=== PATIENT | male | born 1965 | race Caucasian/White ===

== ENCOUNTER 2018-06-16 | Emergency (ER) | payer OTHER | END 2018-06-16 12:08 ==

== ENCOUNTER 2018-06-16 12:30 | Inpatient (IN) | payer OTHER ==
[2018-06-16] MEDS ORDERED: MAGNESIUM HYDROXIDE 30 ML UDCUP PO PRN (14:23)
[2018-06-16] MEDS ORDERED: MAG HYDROX/AL HYDROX/SIMETH 30 ML UDCUP PO PRN (14:23)
[2018-06-16] MEDS: OLANZapine 5 MG TAB PO PRN (18:03)
[2018-06-16] MEDS: QUEtiapine FUMARATE 200 MG TAB PO SCH (20:37)
[2018-06-16] MEDS: DIAZEPAM 2 MG TAB PO SCH (20:37)
--- NOTE | 2018-06-16 20:59 | BAPA ---
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 He lives with his and 2 teenage children in [place]. He has p rior inpatient hospitalizations for detox and rehab. He is presently followed by [facility], and [facility] Frances Dawson MD, and has a [employer], Annabelle Isidro. He has been away from his work since November of 2017, after his discovered his substance use and prompted him to self report t o [facility], which he has done voluntarily. His outpatient Psychiatrist is Juhi Savage MD; he has bee n working with her since June 2007. He was referred to [facility] to likely und ergo electroconvulsive therapy on the referral of Dr. Savage, who has provided verbal corroboration of her support for this treatment, although she is [place] and has not yet provided a [facility] 2nd opinion. Sources of information include, however, Dr. Savage's office notes, which do men tion ECT, and the patient who is a fairly good historian as well as input from his by phone. This patient has a long-standing history of mood symptoms with its onset at approximately 21 years of age, that according to Dr. Savage, had been managed with minimal medication over the years. [facility], he had been using opioids for years, which had been unknown to his medical providers or family. He did manage his mood symptoms behaviorally with attention to sleep, exercise, and stress reduction. However, presently, he is in the throes of a very severe bipolar depression which is not responsive t o thoughtful and comprehensive psychopharmacology and psychotherapy. MEDICATIONS: His present meds include lithium carbonate 600 mg in the morning and 900 mg at h.s.; Se roquel 400 mg p.o. q.h.s.; lamotrigine 200 mg p.o. q.h.s.; Cialis 5 mg 1 each day as needed; he also has been using olanzapine 5 to 10 mg every 6 hours as needed for more severe anxiety. He is on diaze josh presently at 12 mg, which had been used in an attempt to ease his taper off of benzodiazepine, bu t this has proved extremely difficult for the patient. He experiences withdrawal symptomatology inte nsely and with great dysphoria. Present mood symptoms include hypersomnia, anergia, amotivation, profound cognitive deficits in tammy ntration, focus and short-term memory, as well as distractibility, increased appetite, nihilistic and self-deprecating rumination with a.m. worsening, hopelessness and ultimately suicidal ideation with no present intent or plan, but a sense that this could be an option for him given how negatively impa cted so many spheres of his life have become. He has affectively lost his professional stature and s tanding, is having profound family conflict, most notably in the form of refusal of his sons to speak to him and feeling essentially forced to undergo treatment in order to recapture his work life. He denies any present psychotic symptomatology. He has some symptoms that arguably could be consistent with mixed symptoms such as agitation and feeling severe anxiety, dread, and easily overwhelmed. He states metaphorically that he, "feels like a soldier on a landing craft approaching the beach on ." The patient has attempted light therapy to no avail. He has had activating events from antidepr essants such as Wellbutrin. He developed what sounds like a psychotic mixed-manic state when he was abruptly discontinued off of his phenobarbital that was being used to detox him from benzodiazepine. He had hyperreligiosity, paranoia, and hallucinations during that time. He did not sleep for 4 days and his thoughts were racing. The patient has gone to drug rehab at [facility] in [place], and it was there that he had the rapid t aper off of hydrocodone and left against medical advice after 5 days. He also had a rehab experience in [place], [place], at [facility], where he was for 7 weeks. He then went to [facility] for hav ing suicidal ideation, and it was there that he was placed on 270 mg of phenobarbital for 11 days, th en returned back to [place]. He was hospitalized in December 2017, at [facility] for 5 days on an M1 hold. He has been at [facility] in [place], [place]. He developed some paranoid delusion while ere. He returned after that to [facility]. He reportedly wrote a suicide letter in mid February 2018, a nd was taken to a hospital in [place], [place], and then returned back to [facility] ere he had lived in his own apartment for 6 weeks prior to returning to his home with his and liliana luana for the past 3 weeks. Hence, he has been at a number of treatment efforts, some of which seem to be accompanied by worsening mood states and suicidality. PAST MEDICAL HISTORY: The patient has a history of well-controlled asthma, for which he does not use his inhalers every day. He had an acute injury of anterior cruciate ligament in October 2015. He h as tolerated anesthesia well historically. He has no risk factors or history of angina or CAD. No C OPD. He does have a history of bradycardia and his present pulse rate of about 70 is rapid for him a nd he attributes it to his anxiety and the withdrawal from the benzodiazepine. He had been in second -degree Wenckebach heart block at 1 point. His EKG presently reveals that he is in first-degree hear t block. He has no neurologic symptoms, chronic daily headache. ALLERGIES: He is allergic to penicillin and trazodone. SUBSTANCE USE HISTORY: The patient 1st tried alcohol at 15 years of age. He used to drink a 6-pack of beer nightly and in 2006, increased his use and began hiding his consumption. It was in 2009, alejandra t he developed a dependence on hydrocodone which, was not prescribed as well as benzodiazepine. He w as clean 1st 5 months and then relapsed. Urine drug screen was positive for benzodiazepines as he is prescribed them, but negative for opiates. BAL was 0 in the emergency room. FAMILY HISTORY: Two grandfathers committed suicide, 1 by drowning and other by overdose on pills. H is mother was undiagnosed but probably bipolar with possible borderline personality disorder. He has a 15-year-old son with history of depression, who had been treated since 11 years of age. SOCIAL HISTORY: The patient had a 1st marriage at age 23 that lasted 3 years. He his presen t after that, with whom he has 2 sons, ages 15 and 17. He had lived in [place], where he att ended high school then an alternative college with the emphasis on arts. 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 He went to the [employer] and obtained pancho rao MD in 1994. He lived in [place], and then [place], [place]. They then moved to [place] in 2001, moving between [place] and then [place]. 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 No legal history. He is an exercise buff, but this has fallen off dramatically with his present mood and substance-related issues. MENTAL STATUS EXAM: The patient is a 52-year-old white male who appears his stated age. He is pleas ant, cooperative, engaged and clearly expressing a desperate desire to be helped. He comes across, h owever, as tense with some fine hand tremor consistent with his anxiety or perhaps withdrawal. He finley s excellent intellectual insight, alert and oriented x3, above average in intelligence. Thought proc esses are goal directed. Thought content is positive for nihilistic rumination, hopelessness and manoj cidal ideation without present intent or plan. He denies hallucinations or delusional material at pr esent (he does have history, though). There is no overt psychomotor slowing or agitation except for the tension and tremor. He is adequately groomed with decent hygiene and appropriate dress. He is w ell related. Affect is constricted to the dysphoric range. Subjectively, he feels very impaired in terms of attention, focus, concentration, distractibility, executive functioning, and short-term blanka ry. Cognitively, he seems objectively less impaired than he feels subjectively. DIAGNOSIS: Kelliher I: Bipolar 1 disorder, depressed; rule out benzodiazepine withdrawal; history of al cohol, benzodiazepine and opiate use disorder; rule out substance induced mood disorder. Kelliher II: Deferred. Kelliher III: Asthma. Kelliher IV: Severe. Kelliher V: 35 IMPRESSION AND RECOMMENDATION: Rosita is suffering with significant dual diagnosis issues includ ing bipolar depression, substance dependence history, and perhaps some physiologic effects of taperin g benzodiazepine. I believe that his depression is making it that much more difficult to resiliently handle the adverse feelings accompanied with reducing his benzodiazepine, rendering that process ashwini ost impossible for him. It is my conviction that treating his mood disorder more aggressively would not only address those potentially life-threatening symptoms but also allow him to deal with greater equanimity issues such as benzodiazepine taper and the psychosocial stressors that are on his plate i ncluding threat to his career and family. It is a condition of [facility] that he be totally off benzodiaz epines. The patient has been provided with a great deal of psychoeducation regarding ECT, which will be further discussed tomorrow. He understands that it is the most efficacious and expedient way to address his mood disorder and by so doing, allow him a greater chance of coming successfully off the benzodiazepine. I might recommend using an antiepileptic mood stabilizer upon completion of the acut e ECT to allow him to more seamlessly come completely off the benzodiazepine. Depakote might be wort h using and have the added benefit of being an excellent mood stabilizer. Houck and Lamictal level s are pending. The patient might have the benefit of his in-laws supporting outpatient acute ECT. Andie dc live in [place] and may be able to provide that supervision. Otherwise, transferring to an [facility] living program in [facility] while he completes his acute ECT could also work. /[id number]/MODL
[2018-06-16] MEDS ORDERED: LITHIUM CARBONATE 300 MG CAP PO SCH (21:00)
[2018-06-16] MEDS ORDERED: lamoTRIgine 100 MG TAB PO SCH (21:00)
[2018-06-17] MEDS ORDERED: LITHIUM CARBONATE 300 MG CAP PO SCH (09:00)
--- NOTE | 2018-06-17 11:07 | ASMTBHMTP ---
Master Treatment Plan Master Treatment Plan Answers: Depressed Mood with for: Suicidal Ideation Date: 06/16/2018 Diagnosis on Admission: MDD Expected length of stay: 5-7 days Reason for admission: Notes: Client is is a 52 yoa male, with extensive history of participation in and out of "Drug Rehab facilities." Client was treated for a recent Hydrocodone addiction and suicidal statements as well as a drafted "suicide note (February 2018)." Clt has recently returned back to [place], [place] and was living in his own apartment for about 6 weeks with his and children for the past 3 weeks. Client current out-patient treatment team consist of Magalys Isidro (Mobile Architect at [facility], Martial therapist over the past month) & Dr. Juhi Savage MD out-patient Psychiatrist. Patient's stated presenting problems: Notes: "I'm derpressed...going to try ECT [place] with Dr. Watts." Patient's goals for treatment: Notes: "to feel better...." Patient's strengths: Notes: "I'm smart." Identify supports outside of hospital: Notes: Yes Discharge criteria: Notes: Suicidal Ideation will resolve and patient will have a plan to safely manage recurrent suicidal ideation. Initial disposition plan/considerations: Notes: NEED to find new plan because staying with my 's parents are no longer an option." Master Treatment Plan Required Signatures Psychiatrist signature: Answers: Psychiatrist: RN on-shift signature: Answers: RN: Patient signature: Answers: Patient: Date Signed: 06/17/2018 08:48 AM Electronically Signed By:Daljit Jones
[2018-06-17] MEDS: DIAZEPAM 2 MG TAB PO SCH (15:04)
--- NOTE | 2018-06-17 15:35 | SOAPPROG ---
SOAP Progress Note Assessment/Plan: Assessment: Bipolar I depression, ETOH/Benzo/Opiate use disorder, recent Benzo w/d Plan: Reviewed ECT with patient at length. He provided his I/C to start RUL ECT tomorrow. Found out that in-laws are not comfortable providing 24/7 supervision. I recommended they come to see a treatment and speak with MD and Elizabeth Johnston or Kasandra Lowe about the specifics of providing that care. Will reach out to . Will allow Ambien 10 qhs to replace Diazepam for the nights prior to ECT. Dr Becker was given extensive verbal, written, and internet based references (ie , [facility] with video of procedure, and [facility] sites) in the service of providing psycho-education about ECT, and its risks, benefits and alternatives. We discussed APA based guidelines for being a candidate for this procedure, including factors such as acuity, treatment resistance/intolerance, pt preference, the risk of inaction or inadequate action (ie, morbidity or mortality from SI of mood disorder if under treated), and the role of possible diagnostic uncertainty. Alternative treatments, such as further med trial(s), TMS, or psychotherapies were discussed. Star D data was used to inform this medical decision making process, comparing relative remission rates with further med trials in a treatment resistant cohort with remission and response rates using ECT in TRD. The risks were highlighted including mortality from anesthesia, ME, arrhythmia, or CVA.Common, nuisance side effects were discussed including headache, nausea/ emesis, jaw pain, muscle aches. Cognitive side effects were discussed extensively, both verbally and with written handout. This included the potential for: anterograde and retrograde amnesia; transient delirium; hypofrontality with abulia and slowed processing speed ;a sense of derealization/depersonalization. State dependent memory issues were discussed as a form of remote memory effect that may be more a function of ones very improvement than a side effect of ECT itself. Again, all these risks and side effects were balanced against the risk using alternative or status quo treatment. We discussed RUL vs Bilateral ECT Typical course is 6-18 ECTs, 2-3 times per week. Often RUL takes longer to complete than Bilateral, and up to 50% of our patients who start with RUL switch at some point to bilateral due to inadequate or slow response. Maintenance ECT was discussed as beneficial to reduce relapse risk, when used with meds, rather than either modality alone or , of course, neither modality, with its 85% relapse risk in the months following acute ECT in those who respond initially Discussed alternative of starting inpatient vs outpatient, and the need for 24/ 7 supervision for any part of acute ECT done outpatient. This supervision should persist for at least two weeks beyond the end of the acute phase.. Pt and family is instructed to speak with Elizabeth Johnston RN (phone [phone]) re logistic of starting and has information about the supportive, therapeutic services (for pt or family) of Kasandra Lowe, for whom a number is provided. 06/17/18 15:27 Objective: Vital Signs Temp Pulse Resp BP Pulse Ox 36.6 C 90 14 95/58 L 99 06/17/18 06:00 06/17/18 06:00 06/17/18 06:00 06/17/18 06:00 06/17/18 06:00 Laboratory Results 06/16/18 09:25 Laboratory Tests 06/17/18 06/17/18 06:30 06:30 Lamotrigine Pending [place] 1.2 ICD10 Worksheet Patient Problems: Problems Problem Status Onset Bipolar 1 disorder, depressed Acute - ICD10 Problem Qualifiers (1) Bipolar 1 disorder, depressed
[2018-06-17] MEDS: OLANZapine 5 MG TAB PO PRN (18:12)
[2018-06-17] MEDS: ZOLPIDEM TARTRATE 5 MG TAB PO PRN (20:05)
[2018-06-17] MEDS: QUEtiapine FUMARATE 200 MG TAB PO SCH (20:05)
[2018-06-18] MEDS ORDERED: NS 1,000 ML IV PRN (04:00)
[2018-06-18] MEDS ORDERED: CITRIC ACID/SODIUM CITRATE 30 ML UDCUP PO PRN ×2 (04:00→12:33)
[2018-06-18] MEDS ORDERED: ONDANSETRON DISINTEGRATING 4 MG TAB PO PRN ×3 (04:00→13:08)
--- NOTE | 2018-06-18 06:30 | PDMN ---
Medical Necessity Medical necessity: Pt meets inpt criteria per MD order and [facility], Bipolar Disorders, Adult: Inpatient Care, 4 days. Est LOS>2MN for management of severe bipolar depression, hx substance abuse, rule out benzodiazepine WD, rule out substance induced mood disorder.
[2018-06-18] MEDS: OLANZapine 5 MG TAB PO PRN ×2 (10:06→21:34)
[2018-06-18] MEDS ORDERED: ONDANSETRON DISINTEGRATING 4 MG TAB ONE (12:23)
[2018-06-18] MEDS ORDERED: CITRIC ACID/SODIUM CITRATE 30 ML UDCUP ONE (12:23)
[2018-06-18] MEDS ORDERED: fentaNYL 100 MCG/2 ML INJ ONE (12:41)
[2018-06-18] MEDS ORDERED: MIDAZOLAM 2 MG/2 ML VIAL ONE (12:41)
[2018-06-18] MEDS ORDERED: LORazepam 2 MG/ML INJ ONE (12:44)
[2018-06-18] MEDS: NS 1,000 ML IV PRN (12:45)
--- NOTE | 2018-06-18 12:45 | POSTANESTH ---
Post Anesthetic Evaluation Cardiovascular Status: Normal, Stable Respiratory Status: Normal, Stable Level of Consciousness/Mental Status: Can Participate in Eval, Alert and Oriented Pain Control: Adequate, Prn Tx Ordered Nausea/Vomiting Control: Adequate, Prn Tx Ordered Complications Possibly Related to Anesthesia: None Noted
--- NOTE | 2018-06-18 12:46 | PDANEPAE ---
ECT Pre Anesthetic Evaluation Allergies/Adverse Reactions: aripiprazole [From Abilify] Allergy (Verified 06/16/18 10:22) Penicillins Allergy (Verified 06/16/18 10:22) Rash trazodone Allergy (Verified 06/16/18 10:23) Patient ID confirmed: Yes H&P reviewed: Yes Pre-anesthetic history reviewed: Yes Heart: regular rate and rhythym Lungs: clear to auscultation Mallampati Score: Class 3 ASA Status: III Home Medications: Medication Instructions Recorded Albuterol [Proventil Inhaler HFA 1 - 2 puffs IH DAILY PRN 06/16/18 (*)] Diazepam [Valium 2 MG (*)] 6 mg PO BID 06/16/18 [place] Carbonate [[place] 600 mg PO DAILY 06/16/18 Carbonate Cap 300 mg (*)] [place] Carbonate [[place] 900 mg PO HS 06/16/18 Carbonate Cap 300 mg (*)] OLANZapine [ZyPREXA 2.5 mg (*)] 2.5 - 5 mg PO Q6HRS PRN 06/16/18 QUEtiapine FUMARATE [Seroquel 200 200 - 400 mg PO HS 06/16/18 mg (*)] lamoTRIgine [LamICTAL 100 MG (*)] 200 mg PO HS 06/16/18 Patient interviewed: Yes Patient examined: Yes See previous record: Yes Anesthetic plan discussed with patient: Yes Anesthetic risks discussed with patient: Yes ECT Pre-Anesthetic History - Height & Weight Height: 177.8 cm Weight: 90.718 kg BMI: 28.70 - Medications In the Past 6 Months the Patient Has Taken: Aspirin, Tranquilizers - Tobacco/Alcohol/Drug Use Smoking Status: Never smoked Hx Drug/Substance Abuse: Yes Alcohol Use: Yes Tobacco/Alcohol/Drug Use History Comment: h/o opioid/benzo and EtOH dependency, trying to be sober - Prior Surgeries/Hospitalizations Prior Surgeries: bilat inguinal hernia, ACL repair Prior Medical Hospitalizations: pulmonary embolism - Pulmonary History ECT Hx Asthma: Yes Inhaler Use: Inhaler As Needed Hx Abnormal Chest X-Ray: No Hx Oxygen in Use at Home: No Pulmonary History Comment: no inhaler use x6 months, usually RAD activated by URI - Cardiovascular History Hx Hypertension: No Currently Uses Hypertension Medication: No Hx Arrhythmias: No Hx Palpitations: No Hx Chest Pain: No Hx Coronary Artery / Peripheral Vascular Disease: No Hx Blood Clot: Yes Cardiovascular History Comment: 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 - Neurologic History Hx Cerebrovascular Accident: No Hx CT Scan Or MRI Of The Brain: No Hx Epilepsy, Convulsions, Seizures, Or Blackouts: No Hx Frequent Or Severe Headaches: No Hx Numbness: No Hx Neurologic Disorder: No - Dental History Current Dental Issues: None - Endocrine History Hx Diabetes: No Current Daily Insulin Injections: No Hx Thyroid Problems: No - Renal/Urologic History Hx Renal Disorders: No Hx Urinary Tract Problems: No - Liver History Hx Hepatic Disorders: No - Cancer History Hx Cancer: No - Hematology History Hx Unexplained Bleeding Of Any Type: No Hx Ease Of Bruising: No Hx Anemia: No - Gastrointestinal History Hx Gastroesophogeal Reflux Disease: No Hx Ulcers: No Hx Hiatal Hernia: No Hx Difficulty Swallowing: No - Musculoskeletal Hisory Hx Chronic Pain: No Hx Arthritis: No - Opthalmic History Hx Glaucoma: No Visual Assistive Devices: Contacts Hx Opthalmic Disorders: No - Other Health History Physical Disabililty: No Recent Cough, Cold, or Fever: No Significant Weight Loss In The Last 4 Months: No Possible the Patient Might be : No
--- NOTE | 2018-06-18 13:07 | PDECTPN ---
ECT Progress Note Patient Problems: Problems Problem Status Onset Code Bipolar 1 disorder, depressed Acute F31.9 Date: 06/18/18 Treatment#: 1 ECT provider: Isiah Watts Anesthesia: Marii Payne Stimulus dose (%): 50 Pulse width: 0.3 ECT EMG (sec): 28 ECT EEG (sec): 40 QIDS-SR Total Score: 17 QIDS-SR Question #12 Score: 2 MMSE Total Score (Max = 21): 21 Next ECT date: 06/20/18 Next ECT time: 13:15 O/P psychiatrist follow up with Dr.: Hussein O/P psychiatrist follow up: phone, voice message Home medications: Medication Instructions Recorded Albuterol [Proventil Inhaler HFA 1 - 2 puffs IH DAILY PRN 06/16/18 (*)] Diazepam [Valium 2 MG (*)] 6 mg PO BID 06/16/18 [place] Carbonate [[place] 600 mg PO DAILY 06/16/18 Carbonate Cap 300 mg (*)] [place] Carbonate [[place] 900 mg PO HS 06/16/18 Carbonate Cap 300 mg (*)] OLANZapine [ZyPREXA 2.5 mg (*)] 2.5 - 5 mg PO Q6HRS PRN 06/16/18 QUEtiapine FUMARATE [Seroquel 200 200 - 400 mg PO HS 06/16/18 mg (*)] lamoTRIgine [LamICTAL 100 MG (*)] 200 mg PO HS 06/16/18 Medication review: completed Current treatment plan: acute phase Treatment plan frequency: 3 times per week ECT narrative: Pt in here for RUL ECT #1. Score 17/2 on QIDS. affect constricted, mood dyshoric , tearful, hopeless with SI on TC, A and O x3. Discussed his willingness to start taper of Valium. Will use IV ativan post tx as we held hs and am doses of valium. Pt, thankfully, not feeling any symtoms c/w benzo withdrawal as a function of that. Will try to avoid PO opiates post ECT by using Ketoralac with IV fentanyl. Spoke this AM with for further psychoed and to get her ideas about how post discharge 20/05 supervision is to happen (ie, in laws vs assisted living)
[2018-06-18] MEDS ORDERED: ACETAMINOPHEN 500 MG TAB PO PRN (13:08)
[2018-06-18] MEDS ORDERED: PROMETHAZINE HCL 25 MG TAB PO PRN (13:08)
[2018-06-18] MEDS ORDERED: IBUPROFEN 800 MG TAB PO PRN (13:08)
[2018-06-18] MEDS ORDERED: NALOXONE HCL 0.4 MG/ML INJ IVP PRN (13:08)
--- NOTE | 2018-06-18 16:14 | PDHPUP ---
History & Physical Update H&P update statement: This history and physical update is based on an assessment of the patient which was completed after admission or registration (within 24 hours), but prior to the surgery/procedure. H&P update: H&P reviewed & patient examined, no change in patient's condition since H&P completed
[2018-06-18] MEDS: lamoTRIgine 100 MG TAB PO SCH (20:57)
[2018-06-18] MEDS: QUEtiapine FUMARATE 200 MG TAB PO SCH (20:57)
[2018-06-18] MEDS: DIAZEPAM 5 MG TAB PO SCH (20:57)
[2018-06-19] MEDS: DIAZEPAM 5 MG TAB PO SCH (08:16)
--- NOTE | 2018-06-19 13:10 | SOAPPROG ---
SOAP Progress Note Assessment/Plan: Assessment: Bipolar I depression, ETOH/Benzo/Opiate use disorder, recent Benzo w/d Plan: Reviewed ECT with patient at length. He provided his I/C to start RUL ECT tomorrow. Found out that in-laws are not comfortable providing 24/7 supervision. I recommended they come to see a treatment and speak with MD and Elizabeth Johnston or Kasandra Lowe about the specifics of providing that care. Will reach out to . Will allow Ambien 10 qhs to replace Diazepam for the nights prior to ECT. Dr Becker was given extensive verbal, written, and internet based references (ie , [facility] with video of procedure, and [facility] sites) in the service of providing psycho-education about ECT, and its risks, benefits and alternatives. We discussed APA based guidelines for being a candidate for this procedure, including factors such as acuity, treatment resistance/intolerance, pt preference, the risk of inaction or inadequate action (ie, morbidity or mortality from SI of mood disorder if under treated), and the role of possible diagnostic uncertainty. Alternative treatments, such as further med trial(s), TMS, or psychotherapies were discussed. Star D data was used to inform this medical decision making process, comparing relative remission rates with further med trials in a treatment resistant cohort with remission and response rates using ECT in TRD. The risks were highlighted including mortality from anesthesia, LA, arrhythmia, or CVA.Common, nuisance side effects were discussed including headache, nausea/ emesis, jaw pain, muscle aches. Cognitive side effects were discussed extensively, both verbally and with written handout. This included the potential for: anterograde and retrograde amnesia; transient delirium; hypofrontality with abulia and slowed processing speed ;a sense of derealization/depersonalization. State dependent memory issues were discussed as a form of remote memory effect that may be more a function of ones very improvement than a side effect of ECT itself. Again, all these risks and side effects were balanced against the risk using alternative or status quo treatment. We discussed RUL vs Bilateral ECT Typical course is 6-18 ECTs, 2-3 times per week. Often RUL takes longer to complete than Bilateral, and up to 50% of our patients who start with RUL switch at some point to bilateral due to inadequate or slow response. Maintenance ECT was discussed as beneficial to reduce relapse risk, when used with meds, rather than either modality alone or , of course, neither modality, with its 85% relapse risk in the months following acute ECT in those who respond initially Discussed alternative of starting inpatient vs outpatient, and the need for 24/ 7 supervision for any part of acute ECT done outpatient. This supervision should persist for at least two weeks beyond the end of the acute phase.. Pt and family is instructed to speak with Elizabeth Johnston RN (phone [phone]) re logistic of starting and has information about the supportive, therapeutic services (for pt or family) of Kasandra Mynor, for whom a number is provided. 06/17/18 15:27 06/19/18 13:08 Pt interviewed in hospital room, him sitting up in bed. A bit unkempt and tense appearing with rumination and some SI endorsed. Tearful around discussion re sons alienation from him. He is willing to expedite his valium taper and thus I will reduce to 3 mg bid. LMT level was a bit low, but pt did miss one dose the day before it was drawn. Nonetheless, I might recommend increasing his LMT dose upon completion of acute ECT 06/19/18 13:13 Objective: Vital Signs Temp Pulse Resp BP Pulse Ox 36.7 C 85 16 105/70 96 06/18/18 16:00 06/18/18 16:00 06/18/18 16:00 06/18/18 16:00 06/18/18 16:00 Laboratory Results 06/16/18 09:25 06/18/18 06/19/18 06/20/18 05:59 05:59 05:59 Intake Total 950 Balance 950 ICD10 Worksheet Patient Problems: Problems Problem Status Onset Bipolar 1 disorder, depressed Acute - ICD10 Problem Qualifiers (1) Bipolar 1 disorder, depressed
[2018-06-19] MEDS: OLANZapine 5 MG TAB PO PRN (16:03)
--- NOTE | 2018-06-19 16:57 | ASMTCMCOM ---
CM Note CM Note Notes: CC sent referral for long-term placement (short term) via [employer] to [facility] in [place], [place]. There phone number is , to follow up with. Date Signed: 06/19/2018 04:56 PM Electronically Signed By:Daljit Jones
[2018-06-19] MEDS: ZOLPIDEM TARTRATE 5 MG TAB PO PRN (20:29)
[2018-06-19] MEDS: QUEtiapine FUMARATE 200 MG TAB PO SCH (20:30)
[2018-06-20] MEDS ORDERED: ONDANSETRON DISINTEGRATING 4 MG TAB PO PRN (04:00)
[2018-06-20] MEDS ORDERED: CITRIC ACID/SODIUM CITRATE 30 ML UDCUP PO PRN (04:00)
[2018-06-20] MEDS ORDERED: NS 1,000 ML IV PRN (04:00)
[2018-06-20] MEDS ORDERED: fentaNYL 100 MCG/2 ML INJ ONE (05:35)
[2018-06-20] MEDS ORDERED: MIDAZOLAM 2 MG/2 ML VIAL ONE (05:35)
[2018-06-20] MEDS ORDERED: SUCCINYLCHOLINE CHLORIDE 200 MG/10 ML VIAL ONE (05:36)
[2018-06-20] MEDS ORDERED: ONDANSETRON 4 MG/2 ML VIAL ONE (05:36)
[2018-06-20] MEDS ORDERED: KETOROLAC 30 MG/1 ML SDV ONE (05:36)
[2018-06-20] MEDS ORDERED: LORazepam 2 MG/ML INJ ONE (05:36)
[2018-06-20] MEDS ORDERED: ETOMIDATE 20 MG/10 ML VIAL ONE (05:36)
[2018-06-20] MEDS ORDERED: GLYCOPYRROLATE 0.2 MG/1 ML VIAL ONE (05:36)
[2018-06-20] MEDS ORDERED: ONDANSETRON DISINTEGRATING 4 MG TAB ONE (14:03)
[2018-06-20] MEDS: NS 1,000 ML IV PRN (14:04)
[2018-06-20] MEDS ORDERED: CITRIC ACID/SODIUM CITRATE 30 ML UDCUP ONE (14:04)
--- NOTE | 2018-06-20 14:25 | PDANEPAE ---
ANE Past Medical History - Cardiovascular History Hx Hypertension: No Hx Arrhythmias: No Hx Chest Pain: No Hx Coronary Artery / Peripheral Vascular Disease: No Hx Palpitations: No - Pulmonary History Hx Oxygen in Use at Home: No Hx Sleep Apnea: No - Neurologic History Hx Cerebrovascular Accident: No - Endocrine History Hx Diabetes: No - Renal History Hx Renal Disorders: No - Liver History Hx Hepatic Disorders: No - Cancer History Hx Cancer: No - Surgical History Prior Surgeries: bilat inguinal hernia, ACL repair ANE Review of Systems Review of Systems: ANE Patient History - Allergies Allergies/Adverse Reactions: aripiprazole [From Abilify] Allergy (Verified 06/16/18 10:22) Penicillins Allergy (Verified 06/16/18 10:22) Rash trazodone Allergy (Verified 06/16/18 10:23) - Home Medications Home Medications: Albuterol [Proventil Inhaler HFA (*)] 1 - 2 puffs IH DAILY PRN 06/16/18 [Last Taken Unknown] Diazepam [Valium 2 MG (*)] 6 mg PO BID 06/16/18 [Last Taken 06/16/18] [place] Carbonate [[place] Carbonate Cap 300 mg (*)] 600 mg PO DAILY 06/16/18 [ Last Taken 06/16/18] [place] Carbonate [[place] Carbonate Cap 300 mg (*)] 900 mg PO HS 06/16/18 [ Last Taken 06/15/18] OLANZapine [ZyPREXA 2.5 mg (*)] 2.5 - 5 mg PO Q6HRS PRN 06/16/18 [Last Taken Unknown] QUEtiapine FUMARATE [Seroquel 200 mg (*)] 200 - 400 mg PO HS 06/16/18 [Last Taken 06/15/18 300mg] lamoTRIgine [LamICTAL 100 MG (*)] 200 mg PO HS 06/16/18 [Last Taken 06/14/18] - NPO status NPO Status: no food or drink >8 hours - Anes Hx Anes Hx: no prior problems - Smoking Hx Smoking Status: Never smoked ANE Labs/Vital Signs - Labs Result Diagrams: 06/16/18 09:25 - Vital Signs Blood Pressure: 107/80 Heart Rate: 60 Respiratory Rate: 12 O2 Sat (%): 93 Height: 177.8 cm Weight: 90.718 kg ANE Physical Exam - Airway Neck exam: FROM Mallampati Score: Class 2 Mouth exam: normal dental/mouth exam - Pulmonary Pulmonary: no respiratory distress, no rales or rhonchi, clear to auscultation - Cardiovascular Cardiovascular: regular rate and rhythym, no murmur, rub, or gallop - ASA Status ASA Status: II ANE Anesthesia Plan Anesthesia Plan: GA with mask
--- NOTE | 2018-06-20 14:29 | PDECTPN ---
ECT Progress Note Patient Problems: Problems Problem Status Onset Code Bipolar 1 disorder, depressed Acute F31.9 Date: 06/20/18 Treatment#: 2 ECT provider: Isiah Watts Anesthesia: Narayan Pelletier Stimulus dose (%): 55 Pulse width: 0.3 ECT EMG (sec): 23 ECT EEG (sec): 43 ECT treatment type: unilateral QIDS-SR Total Score: 18 QIDS-SR Question #12 Score: 0 MMSE Total Score (Max = 21): 21 Next ECT date: 06/23/18 Next ECT time: 08:30 O/P psychiatrist follow up with Dr.: Hussein O/P psychiatrist follow up: phone, voice message Home medications: Medication Instructions Recorded Albuterol [Proventil Inhaler HFA 1 - 2 puffs IH DAILY PRN 06/16/18 (*)] Diazepam [Valium 2 MG (*)] 6 mg PO BID 06/16/18 [place] Carbonate [[place] 600 mg PO DAILY 06/16/18 Carbonate Cap 300 mg (*)] [place] Carbonate [[place] 900 mg PO HS 06/16/18 Carbonate Cap 300 mg (*)] OLANZapine [ZyPREXA 2.5 mg (*)] 2.5 - 5 mg PO Q6HRS PRN 06/16/18 QUEtiapine FUMARATE [Seroquel 200 200 - 400 mg PO HS 06/16/18 mg (*)] lamoTRIgine [LamICTAL 100 MG (*)] 200 mg PO HS 06/16/18 Medication review: completed Current treatment plan: acute phase Treatment plan frequency: 3 times per week ECT narrative: 06/18/18 Pt in here for RUL ECT #1. Score 17/2 on QIDS. affect constricted, mood dyshoric , tearful, hopeless with SI on TC, A and O x3. Discussed his willingness to start taper of Valium. Will use IV ativan post tx as we held hs and am doses of valium. Pt, thankfully, not feeling any symtoms c/w benzo withdrawal as a function of that. Will try to avoid PO opiates post ECT by using Ketoralac with IV fentanyl. Spoke this AM with for further psychoed and to get her ideas about how post discharge 20/05 supervision is to happen (ie, in laws vs assisted living) 06/20/18 Pt QIDS is 18/0 today. Tolerating Diazepam withdrawal thus far. Down to 3mg bid from 6 bid. Feeling dysphoric about his life circumstances and grieving his losses. Affect constricted, even tearful a bit, ruminative. Less overtly tense and anxious appearing however, despite reduced benzos. Cont acute RUL ECT. 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
--- NOTE | 2018-06-20 14:41 | POSTANESTH ---
Post Anesthetic Evaluation Cardiovascular Status: Similar to Pre-Op Cond, Other, See Comment (Bradycardic to 35 during postictal phase; now in 50s.) Respiratory Status: Normal, Stable, Similar to Pre-op Cond. Level of Consciousness/Mental Status: Unconscious Complications Possibly Related to Anesthesia: None Noted
[2018-06-20] MEDS: OLANZapine 5 MG TAB PO PRN (16:41)
[2018-06-20] MEDS: lamoTRIgine 100 MG TAB PO SCH (21:03)
[2018-06-20] MEDS: QUEtiapine FUMARATE 200 MG TAB PO SCH (21:03)
[2018-06-20] MEDS: DIAZEPAM 2 MG TAB PO SCH (21:04)
[2018-06-21] MEDS: DIAZEPAM 2 MG TAB PO SCH ×2 (08:24→20:39)
[2018-06-21] MEDS: OLANZapine 5 MG TAB PO PRN ×2 (14:39→20:36)
--- NOTE | 2018-06-21 17:20 | SOAPPROG ---
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 is Vol. seems with brighter affect. not attending groups on eval, pt admits he was feeling better yesterday after ECT "more upbeat", still overall better today but slightly less so regarding his mood with some return of depression. denies any SI. denies psychotic sxs or sleep disturbance. denies any BZD w/d sxs. has several books at bedside he has been trying to read seemingly for spiritual uplifting. Feels ECT may be helping soften any potential w/d sxs. talked some of his opiate addiction and generally about his issues with family as a result. expresses motivation and hopefulness about treatment mse; cooperative, casually dressed, resting in room, good ec, nml speech vol/ rate, mood "a little more depressed today" but overall still better than on admission, affect restricted but appropriate, no thought d/o, denied any SI. i/ j seem intact plan: cont current meds, ECT okay AG privs with family Objective: Vital Signs Temp Pulse Resp BP Pulse Ox 36.8 C 59 L 14 100/61 96 06/20/18 19:00 06/20/18 19:00 06/20/18 19:00 06/20/18 19:00 06/20/18 19:00 Laboratory Results 06/16/18 09:25 06/20/18 06/21/18 06/22/18 05:59 05:59 05:59 Intake Total 840 Balance 840 - Time Spent With Patient Time Spent With Patient: 30min - Pending Discharge Pending Discharge Within 24 Hours: No Pending Discharge Within 48 Hours: No ICD10 Worksheet Patient Problems: Problems Problem Status Onset Bipolar 1 disorder, depressed Acute
[2018-06-21] MEDS: lamoTRIgine 100 MG TAB PO SCH (20:38)
[2018-06-21] MEDS: QUEtiapine FUMARATE 200 MG TAB PO SCH (20:38)
[2018-06-22] MEDS: DIAZEPAM 2 MG TAB PO SCH ×2 (08:15→19:52)
[2018-06-22] MEDS: OLANZapine 5 MG TAB PO PRN (15:14)
--- NOTE | 2018-06-22 18:05 | SOAPPROG ---
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 is Vol. seems with brighter affect. not attending groups on eval, pt admits he was feeling better yesterday after ECT "more upbeat", still overall better today but slightly less so regarding his mood with some return of depression. denies any SI. denies psychotic sxs or sleep disturbance. denies any BZD w/d sxs. has several books at bedside he has been trying to read seemingly for spiritual uplifting. Feels ECT may be helping soften any potential w/d sxs. talked some of his opiate addiction and generally about his issues with family as a result. expresses motivation and hopefulness about treatment mse; cooperative, casually dressed, resting in room, good ec, nml speech vol/ rate, mood "a little more depressed today" but overall still better than on admission, affect restricted but appropriate, no thought d/o, denied any SI. i/ j seem intact plan: cont current meds, ECT okay AG privs with family 06/22/18 17:55 slept 8.5hr. half-hearted safety plan completed. not attending groups. patient went on [employer] with in-laws yesterday. recalled biking in a race around [employer] in past years. his kids and are at a bike race now. reports feeling more depressed today and as a result having some hopeless feelings about whether he will ever get better. Notes 2 problems: return to work, and family issues (teen sons not communicating with him presently) feels thoughts more perseverative on negative things. denies any suicidality. hoping ECT will help him have more positive thoughts. discussed need to practice this as well. Interested in spiritual consult, identifies yarsanism preference. Offered support, also invited pt to consider trying attending groups to help gain perspective/appreciation or he could be helpful to others, which can incr positive thoughts, also decr isolation in room. Also consider family therapy after d/c. mse: cooperative, a bit more dysphoric today. no psychosis. denied any SI. still motivated for continuing treatment. no physical c/o. denies any BZD w/d sxs. plan: cont current meds, ECT okay to continue on AG encouraged group attendance spiritual consult ?family therapy after d/c in addition to other requirements Objective: Vital Signs Temp Pulse Resp BP Pulse Ox 36.8 C 59 L 14 100/61 96 06/20/18 19:00 06/20/18 19:00 06/20/18 19:00 06/20/18 19:00 06/20/18 19:00 Laboratory Results 06/16/18 09:25 06/21/18 06/22/18 06/23/18 05:59 05:59 05:59 Intake Total 840 Balance 840 - Time Spent With Patient Time Spent With Patient: 40min - Pending Discharge Pending Discharge Within 24 Hours: No Pending Discharge Within 48 Hours: No ICD10 Worksheet Patient Problems: Problems Problem Status Onset Bipolar 1 disorder, depressed Acute
[2018-06-22] MEDS: lamoTRIgine 100 MG TAB PO SCH (19:51)
[2018-06-22] MEDS: ZOLPIDEM TARTRATE 5 MG TAB PO PRN (19:52)
[2018-06-22] MEDS: QUEtiapine FUMARATE 200 MG TAB PO SCH (19:52)
[2018-06-23] MEDS ORDERED: MIDAZOLAM 2 MG/2 ML VIAL ONE (05:10)
[2018-06-23] MEDS ORDERED: fentaNYL 100 MCG/2 ML INJ ONE (05:10)
[2018-06-23] MEDS ORDERED: GLYCOPYRROLATE 0.2 MG/1 ML VIAL ONE (05:10)
[2018-06-23] MEDS ORDERED: ETOMIDATE 20 MG/10 ML VIAL ONE (05:10)
[2018-06-23] MEDS ORDERED: KETOROLAC 30 MG/1 ML SDV ONE (05:10)
[2018-06-23] MEDS ORDERED: ONDANSETRON 4 MG/2 ML VIAL ONE (05:10)
[2018-06-23] MEDS ORDERED: SUCCINYLCHOLINE CHLORIDE 200 MG/10 ML VIAL ONE (05:11)
[2018-06-23] MEDS ORDERED: LORazepam 2 MG/ML INJ ONE (05:11)
[2018-06-23] MEDS ORDERED: ROCURONIUM 50 MG/5 ML VIAL ONE (05:11)
[2018-06-23] MEDS: DIAZEPAM 2 MG TAB PO SCH ×2 (08:01→20:43)
[2018-06-23] MEDS ORDERED: ONDANSETRON DISINTEGRATING 4 MG TAB ONE (08:39)
[2018-06-23] MEDS ORDERED: CITRIC ACID/SODIUM CITRATE 30 ML UDCUP ONE (08:40)
[2018-06-23] MEDS ORDERED: NS 1,000 ML IV PRN (08:45)
[2018-06-23] MEDS ORDERED: CITRIC ACID/SODIUM CITRATE 30 ML UDCUP PO PRN (08:45)
[2018-06-23] MEDS ORDERED: ONDANSETRON DISINTEGRATING 4 MG TAB PO PRN (08:45)
--- NOTE | 2018-06-23 09:27 | PDANEPAE ---
ECT Pre Anesthetic Evaluation Allergies/Adverse Reactions: aripiprazole [From Abilify] Allergy (Verified 06/16/18 10:22) Penicillins Allergy (Verified 06/16/18 10:22) Rash trazodone Allergy (Verified 06/16/18 10:23) Patient ID confirmed: Yes H&P reviewed: Yes Pre-anesthetic history reviewed: Yes Heart: regular rate and rhythym, no murmur, rub, or gallop Lungs: no respiratory distress, clear to auscultation Mallampati Score: Class 3 ASA Status: III Home Medications: Medication Instructions Recorded Albuterol [Proventil Inhaler HFA 1 - 2 puffs IH DAILY PRN 06/16/18 (*)] Diazepam [Valium 2 MG (*)] 6 mg PO BID 06/16/18 [place] Carbonate [[place] 600 mg PO DAILY 06/16/18 Carbonate Cap 300 mg (*)] [place] Carbonate [[place] 900 mg PO HS 06/16/18 Carbonate Cap 300 mg (*)] OLANZapine [ZyPREXA 2.5 mg (*)] 2.5 - 5 mg PO Q6HRS PRN 06/16/18 QUEtiapine FUMARATE [Seroquel 200 200 - 400 mg PO HS 06/16/18 mg (*)] lamoTRIgine [LamICTAL 100 MG (*)] 200 mg PO HS 06/16/18 Medication review: completed Patient interviewed: Yes Patient examined: Yes Anesthetic plan discussed with patient: Yes Anesthetic risks discussed with patient: Yes ECT Pre-Anesthetic History - Height & Weight Height: 177.8 cm Weight: 90.718 kg BMI: 28.70 - Medications In the Past 6 Months the Patient Has Taken: Aspirin, Tranquilizers - Tobacco/Alcohol/Drug Use Smoking Status: Never smoked Hx Drug/Substance Abuse: Yes Alcohol Use: Yes Tobacco/Alcohol/Drug Use History Comment: h/o opioid/benzo and EtOH dependency, trying to be sober - Prior Surgeries/Hospitalizations Prior Surgeries: bilat inguinal hernia, ACL repair Prior Medical Hospitalizations: pulmonary embolism - Pulmonary History ECT Hx Asthma: Yes Inhaler Use: Inhaler As Needed Hx Abnormal Chest X-Ray: No Hx Oxygen in Use at Home: No Pulmonary History Comment: no inhaler use x6 months, usually RAD activated by URI - Cardiovascular History Hx Hypertension: No Currently Uses Hypertension Medication: No Hx Arrhythmias: No Hx Palpitations: No Hx Chest Pain: No Hx Coronary Artery / Peripheral Vascular Disease: No Hx Blood Clot: Yes Cardiovascular History Comment: 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 - Neurologic History Hx Cerebrovascular Accident: No Hx CT Scan Or MRI Of The Brain: No Hx Epilepsy, Convulsions, Seizures, Or Blackouts: No Hx Frequent Or Severe Headaches: No Hx Numbness: No Hx Neurologic Disorder: No - Dental History Current Dental Issues: None - Endocrine History Hx Diabetes: No Current Daily Insulin Injections: No Hx Thyroid Problems: No - Renal/Urologic History Hx Renal Disorders: No Hx Urinary Tract Problems: No - Liver History Hx Hepatic Disorders: No - Cancer History Hx Cancer: No - Hematology History Hx Unexplained Bleeding Of Any Type: No Hx Ease Of Bruising: No Hx Anemia: No - Gastrointestinal History Hx Gastroesophogeal Reflux Disease: No Hx Ulcers: No Hx Hiatal Hernia: No Hx Difficulty Swallowing: No - Musculoskeletal Hisory Hx Chronic Pain: No Hx Arthritis: No - Opthalmic History Hx Glaucoma: No Visual Assistive Devices: Contacts Hx Opthalmic Disorders: No - Other Health History Physical Disabililty: No Recent Cough, Cold, or Fever: No Significant Weight Loss In The Last 4 Months: No Possible the Patient Might be : No
--- NOTE | 2018-06-23 09:33 | PDECTPN ---
ECT Progress Note Patient Problems: Problems Problem Status Onset Code Bipolar 1 disorder, depressed Acute F31.9 Date: 06/23/18 Treatment#: 3 ECT provider: Isiah Watts Anesthesia: Narayan Pelletier Stimulus dose (%): 60 Pulse width: 0.3 ECT EMG (sec): 40 ECT EEG (sec): 48 ECT treatment type: unilateral QIDS-SR Total Score: 9 QIDS-SR Question #12 Score: 0 MMSE Total Score (Max = 21): 21 Next ECT date: 06/25/18 Next ECT time: 10:30 O/P psychiatrist follow up with Dr.: Hussein O/P psychiatrist follow up: phone, voice message Home medications: Medication Instructions Recorded Albuterol [Proventil Inhaler HFA 1 - 2 puffs IH DAILY PRN 06/16/18 (*)] Diazepam [Valium 2 MG (*)] 6 mg PO BID 06/16/18 [place] Carbonate [[place] 600 mg PO DAILY 06/16/18 Carbonate Cap 300 mg (*)] [place] Carbonate [[place] 900 mg PO HS 06/16/18 Carbonate Cap 300 mg (*)] OLANZapine [ZyPREXA 2.5 mg (*)] 2.5 - 5 mg PO Q6HRS PRN 06/16/18 QUEtiapine FUMARATE [Seroquel 200 200 - 400 mg PO HS 06/16/18 mg (*)] lamoTRIgine [LamICTAL 100 MG (*)] 200 mg PO HS 06/16/18 Medication review: completed Current treatment plan: acute phase Treatment plan frequency: 3 times per week ECT narrative: 06/18/18 Pt in here for RUL ECT #1. Score 17/2 on QIDS. affect constricted, mood dyshoric , tearful, hopeless with SI on TC, A and O x3. Discussed his willingness to start taper of Valium. Will use IV ativan post tx as we held hs and am doses of valium. Pt, thankfully, not feeling any symtoms c/w benzo withdrawal as a function of that. Will try to avoid PO opiates post ECT by using Ketoralac with IV fentanyl. Spoke this AM with for further psychoed and to get her ideas about how post discharge 20/05 supervision is to happen (ie, in laws vs assisted living) 06/20/18 Pt QIDS is 18/0 today. Tolerating Diazepam withdrawal thus far. Down to 3mg bid from 6 bid. Feeling dysphoric about his life circumstances and grieving his losses. Affect constricted, even tearful a bit, ruminative. Less overtly tense and anxious appearing however, despite reduced benzos. Cont acute RUL ECT. 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 06/23 Read and appreciated weekend MD notes. Will call pt's . Pt liekly feeling some vague dysphoria with decrease in Valium to 3 bid. ANd needing to hold doses prior to ECT further increases that mild w/d phenomenon that he is not able to tolerate. [place] w/e was "bad" after having felt some relief with prior two ECT. Affect constricted, pleading, tense disposition, impov speech, PMR. WIll cont RUL acute ECT and cont Valium taper, but a bit slower going forward.
[2018-06-23] MEDS ORDERED: NALOXONE HCL 0.4 MG/ML INJ IVP PRN (09:34)
[2018-06-23] MEDS ORDERED: HYDROCODONE/APAP 5/325 TAB PO PRN (09:34)
--- NOTE | 2018-06-23 11:03 | POSTANESTH ---
Post Anesthetic Evaluation Cardiovascular Status: Normal, Stable Respiratory Status: Normal, Stable Level of Consciousness/Mental Status: Can Participate in Eval, Alert and Oriented Pain Control: Adequate, Prn Tx Ordered Nausea/Vomiting Control: Adequate, Prn Tx Ordered
[2018-06-23] MEDS: QUEtiapine FUMARATE 200 MG TAB PO SCH (20:44)
[2018-06-23] MEDS: lamoTRIgine 100 MG TAB PO SCH (20:44)
[2018-06-23] MEDS: OLANZapine 5 MG TAB PO PRN (20:44)
[2018-06-24] MEDS: DIAZEPAM 2 MG TAB PO SCH (08:07)
--- NOTE | 2018-06-24 14:03 | SOAPPROG ---
SOAP Progress Note Assessment/Plan: Assessment: Bipolar I depression, ETOH/Benzo/Opiate use disorder, recent Benzo w/d Plan: Reviewed ECT with patient at length. He provided his I/C to start RUL ECT tomorrow. Found out that in-laws are not comfortable providing 24/7 supervision. I recommended they come to see a treatment and speak with MD and Elizabeth Johnston or Kasandra Lowe about the specifics of providing that care. Will reach out to . Will allow Ambien 10 qhs to replace Diazepam for the nights prior to ECT. Dr Becker was given extensive verbal, written, and internet based references (ie , [facility] with video of procedure, and [facility] sites) in the service of providing psycho-education about ECT, and its risks, benefits and alternatives. We discussed APA based guidelines for being a candidate for this procedure, including factors such as acuity, treatment resistance/intolerance, pt preference, the risk of inaction or inadequate action (ie, morbidity or mortality from SI of mood disorder if under treated), and the role of possible diagnostic uncertainty. Alternative treatments, such as further med trial(s), TMS, or psychotherapies were discussed. Star D data was used to inform this medical decision making process, comparing relative remission rates with further med trials in a treatment resistant cohort with remission and response rates using ECT in TRD. The risks were highlighted including mortality from anesthesia, UT, arrhythmia, or CVA.Common, nuisance side effects were discussed including headache, nausea/ emesis, jaw pain, muscle aches. Cognitive side effects were discussed extensively, both verbally and with written handout. This included the potential for: anterograde and retrograde amnesia; transient delirium; hypofrontality with abulia and slowed processing speed ;a sense of derealization/depersonalization. State dependent memory issues were discussed as a form of remote memory effect that may be more a function of ones very improvement than a side effect of ECT itself. Again, all these risks and side effects were balanced against the risk using alternative or status quo treatment. We discussed RUL vs Bilateral ECT Typical course is 6-18 ECTs, 2-3 times per week. Often RUL takes longer to complete than Bilateral, and up to 50% of our patients who start with RUL switch at some point to bilateral due to inadequate or slow response. Maintenance ECT was discussed as beneficial to reduce relapse risk, when used with meds, rather than either modality alone or , of course, neither modality, with its 85% relapse risk in the months following acute ECT in those who respond initially Discussed alternative of starting inpatient vs outpatient, and the need for 24/ 7 supervision for any part of acute ECT done outpatient. This supervision should persist for at least two weeks beyond the end of the acute phase.. Pt and family is instructed to speak with Elizabeth Johnston RN (phone [phone]) re logistic of starting and has information about the supportive, therapeutic services (for pt or family) of Kasandra Mynor, for whom a number is provided. 06/17/18 15:27 06/19/18 13:08 Pt interviewed in hospital room, him sitting up in bed. A bit unkempt and tense appearing with rumination and some SI endorsed. Tearful around discussion re sons alienation from him. He is willing to expedite his valium taper and thus I will reduce to 3 mg bid. LMT level was a bit low, but pt did miss one dose the day before it was drawn. Nonetheless, I might recommend increasing his LMT dose upon completion of acute ECT 06/19/18 13:13 06/24/18 13:57 Spent 45 min providing psychoeducation and supportive therapy for pt. Discussed response thus far to ECT which involves transient improvement on days of Treatment and some, albeit not total, backsliding afterwards. Tolerating decrease in Valium, which itself was proving to be intolerable pre ECT when done even more modestly (ie, he could not tolerate a change from 12 mg to 10 without subjective discomfort; now is down to 3mg bid, and is having a substantial percentage of those doses held around ECT treatments). He has NO signs objectively of benzo w/d. He is wishing to push forward and decrease it to 2 mg bid. Feels some waxing and waning sense of hopefulness about surmounting his situational stressors, most notably the disturbed relationship with his sons. Spoke at length with yesterday pm. Tentative plan is to shoot for discharge by Saturday, wherein pt will stay in rented apt with 24/7 hired supervision. This person will monitor and dispense meds, allow no driving and transport pt to appts, kamala ECT. In Laws will also play a role. I encouraged there by a family meeting a week from , in my outpt office, with in Laws , by phone. Pt will be s/p ECT #7 at that point. Objective: Vital Signs Temp Pulse Resp BP Pulse Ox 36.4 C 70 14 101/60 90 L 06/24/18 06:00 06/24/18 06:00 06/24/18 06:00 06/24/18 06:00 06/24/18 06:00 Laboratory Results 06/16/18 09:25 06/23/18 06/24/18 06/25/18 05:59 05:59 05:59 Intake Total 850 Balance 850 ICD10 Worksheet Patient Problems: Problems Problem Status Onset Bipolar 1 disorder, depressed Acute - ICD10 Problem Qualifiers (1) Bipolar 1 disorder, depressed
--- NOTE | 2018-06-24 14:18 | ASMTCMCOM ---
CM Note CM Note Notes: Pt. reports doing "okay". Pt. reports sleeping "well". Pt. reports needing more to eat, and pt. requested additional food. Pt. reports ECT is "going well". Pt. reports "mood feel better but it doesn't last". Pt. stated he is on his 4th ECT out of 12. PT. reports no issues with his current medications. Pt. stated he is not attending groups because he is "not interested". Pt. denied SI, HI, AVH and paranoia. Pt. stated he will make his own follow-up appointments. Staff report pt. sleeping 9 hours and being medication complaint. Date Signed: 06/24/2018 02:07 PM Electronically Signed By:Carol Major
[2018-06-24] MEDS: OLANZapine 5 MG TAB PO PRN (15:24)
[2018-06-24] MEDS: ZOLPIDEM TARTRATE 5 MG TAB PO PRN (19:22)
[2018-06-24] MEDS: QUEtiapine FUMARATE 200 MG TAB PO SCH (19:22)
[2018-06-25] MEDS ORDERED: MIDAZOLAM 2 MG/2 ML VIAL ONE (05:27)
[2018-06-25] MEDS ORDERED: fentaNYL 100 MCG/2 ML INJ ONE (05:27)
[2018-06-25] MEDS ORDERED: LORazepam 2 MG/ML INJ ONE (05:28)
[2018-06-25] MEDS ORDERED: GLYCOPYRROLATE 0.2 MG/1 ML VIAL ONE (05:28)
[2018-06-25] MEDS ORDERED: ROCURONIUM 50 MG/5 ML VIAL ONE (05:28)
[2018-06-25] MEDS ORDERED: SUCCINYLCHOLINE CHLORIDE 200 MG/10 ML VIAL ONE (05:28)
[2018-06-25] MEDS ORDERED: KETOROLAC 30 MG/1 ML SDV ONE (05:28)
[2018-06-25] MEDS ORDERED: ETOMIDATE 20 MG/10 ML VIAL ONE (05:28)
[2018-06-25] MEDS ORDERED: ONDANSETRON 4 MG/2 ML VIAL ONE (05:28)
[2018-06-25] MEDS ORDERED: CITRIC ACID/SODIUM CITRATE 30 ML UDCUP ONE (09:58)
[2018-06-25] MEDS ORDERED: ONDANSETRON DISINTEGRATING 4 MG TAB ONE ×2 (09:58→10:22)
[2018-06-25] MEDS ORDERED: NS 1,000 ML IV PRN (10:38)
[2018-06-25] MEDS ORDERED: ONDANSETRON DISINTEGRATING 4 MG TAB PO PRN (10:38)
[2018-06-25] MEDS ORDERED: CITRIC ACID/SODIUM CITRATE 30 ML UDCUP PO PRN (10:38)
--- NOTE | 2018-06-25 11:03 | PDANEPAE ---
ECT Pre Anesthetic Evaluation Allergies/Adverse Reactions: aripiprazole [From Abilify] Allergy (Verified 06/16/18 10:22) Penicillins Allergy (Verified 06/16/18 10:22) Rash trazodone Allergy (Verified 06/16/18 10:23) Patient ID confirmed: Yes H&P reviewed: Yes Pre-anesthetic history reviewed: Yes Heart: regular rate and rhythym, no murmur, rub, or gallop Lungs: no respiratory distress, clear to auscultation Mallampati Score: Class 3 ASA Status: I Home Medications: Medication Instructions Recorded Albuterol [Proventil Inhaler HFA 1 - 2 puffs IH DAILY PRN 06/16/18 (*)] Diazepam [Valium 2 MG (*)] 6 mg PO BID 06/16/18 [place] Carbonate [[place] 600 mg PO DAILY 06/16/18 Carbonate Cap 300 mg (*)] [place] Carbonate [[place] 900 mg PO HS 06/16/18 Carbonate Cap 300 mg (*)] OLANZapine [ZyPREXA 2.5 mg (*)] 2.5 - 5 mg PO Q6HRS PRN 06/16/18 QUEtiapine FUMARATE [Seroquel 200 200 - 400 mg PO HS 06/16/18 mg (*)] lamoTRIgine [LamICTAL 100 MG (*)] 200 mg PO HS 06/16/18 Medication review: completed Patient interviewed: Yes Patient examined: Yes Anesthetic plan discussed with patient: Yes Anesthetic risks discussed with patient: Yes ECT Pre-Anesthetic History - Height & Weight Height: 177.8 cm Weight: 90.718 kg BMI: 28.70 - Medications In the Past 6 Months the Patient Has Taken: Aspirin, Tranquilizers - Tobacco/Alcohol/Drug Use Smoking Status: Never smoked Hx Drug/Substance Abuse: Yes Alcohol Use: Yes Tobacco/Alcohol/Drug Use History Comment: h/o opioid/benzo and EtOH dependency, trying to be sober - Prior Surgeries/Hospitalizations Prior Surgeries: bilat inguinal hernia, ACL repair Prior Medical Hospitalizations: pulmonary embolism - Pulmonary History ECT Hx Asthma: Yes Inhaler Use: Inhaler As Needed Hx Abnormal Chest X-Ray: No Hx Oxygen in Use at Home: No Pulmonary History Comment: no inhaler use x6 months, usually RAD activated by URI - Cardiovascular History Hx Hypertension: No Currently Uses Hypertension Medication: No Hx Arrhythmias: No Hx Palpitations: No Hx Chest Pain: No Hx Coronary Artery / Peripheral Vascular Disease: No Hx Blood Clot: Yes Cardiovascular History Comment: 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 - Neurologic History Hx Cerebrovascular Accident: No Hx CT Scan Or MRI Of The Brain: No Hx Epilepsy, Convulsions, Seizures, Or Blackouts: No Hx Frequent Or Severe Headaches: No Hx Numbness: No Hx Neurologic Disorder: No - Dental History Current Dental Issues: None - Endocrine History Hx Diabetes: No Current Daily Insulin Injections: No Hx Thyroid Problems: No - Renal/Urologic History Hx Renal Disorders: No Hx Urinary Tract Problems: No - Liver History Hx Hepatic Disorders: No - Cancer History Hx Cancer: No - Hematology History Hx Unexplained Bleeding Of Any Type: No Hx Ease Of Bruising: No Hx Anemia: No - Gastrointestinal History Hx Gastroesophogeal Reflux Disease: No Hx Ulcers: No Hx Hiatal Hernia: No Hx Difficulty Swallowing: No - Musculoskeletal Hisory Hx Chronic Pain: No Hx Arthritis: No - Opthalmic History Hx Glaucoma: No Visual Assistive Devices: Contacts Hx Opthalmic Disorders: No - Other Health History Physical Disabililty: No Recent Cough, Cold, or Fever: No Significant Weight Loss In The Last 4 Months: No Possible the Patient Might be : No
[2018-06-25] MEDS ORDERED: PROMETHAZINE HCL 25 MG TAB PO PRN (11:08)
[2018-06-25] MEDS ORDERED: NALOXONE HCL 0.4 MG/ML INJ IVP PRN (11:08)
[2018-06-25] MEDS ORDERED: HYDROCODONE/APAP 5/325 TAB PO PRN (11:08)
--- NOTE | 2018-06-25 11:08 | PDECTPN ---
ECT Progress Note Patient Problems: Problems Problem Status Onset Code Bipolar 1 disorder, depressed Acute F31.9 Date: 06/25/18 Treatment#: 4 ECT provider: Isiah Watts Anesthesia: Narayan Pelletier Stimulus dose (%): 65 Pulse width: 0.3 ECT EMG (sec): 33 ECT EEG (sec): 42 ECT treatment type: unilateral QIDS-SR Total Score: 7 QIDS-SR Question #12 Score: 0 MMSE Total Score (Max = 21): 21 Next ECT date: 06/27/18 Next ECT time: 08:30 O/P psychiatrist follow up with Dr.: Hussein O/P psychiatrist follow up: phone, voice message Home medications: Medication Instructions Recorded Albuterol [Proventil Inhaler HFA 1 - 2 puffs IH DAILY PRN 06/16/18 (*)] Diazepam [Valium 2 MG (*)] 6 mg PO BID 06/16/18 [place] Carbonate [Vevay 600 mg PO DAILY 06/16/18 Carbonate Cap 300 mg (*)] [place]evay Carbonate [Vevay 900 mg PO HS 06/16/18 Carbonate Cap 300 mg (*)] OLANZapine [ZyPREXA 2.5 mg (*)] 2.5 - 5 mg PO Q6HRS PRN 06/16/18 QUEtiapine FUMARATE [Seroquel 200 200 - 400 mg PO HS 06/16/18 mg (*)] lamoTRIgine [LamICTAL 100 MG (*)] 200 mg PO HS 06/16/18 Current treatment plan: acute phase Treatment plan frequency: 3 times per week ECT narrative: 06/18/18 Pt in here for RUL ECT #1. Score 17/2 on QIDS. affect constricted, mood dyshoric , tearful, hopeless with SI on TC, A and O x3. Discussed his willingness to start taper of Valium. Will use IV ativan post tx as we held hs and am doses of valium. Pt, thankfully, not feeling any symtoms c/w benzo withdrawal as a function of that. Will try to avoid PO opiates post ECT by using Ketoralac with IV fentanyl. Spoke this AM with for further psychoed and to get her ideas about how post discharge 20/05 supervision is to happen (ie, in laws vs assisted living) 06/20/18 Pt QIDS is 18/0 today. Tolerating Diazepam withdrawal thus far. Down to 3mg bid from 6 bid. Feeling dysphoric about his life circumstances and grieving his losses. Affect constricted, even tearful a bit, ruminative. Less overtly tense and anxious appearing however, despite reduced benzos. Cont acute RUL ECT. 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 06/23 Read and appreciated weekend MD notes. Will call pt's . Pt liekly feeling some vague dysphoria with decrease in Valium to 3 bid. ANd needing to hold doses prior to ECT further increases that mild w/d phenomenon that he is not able to tolerate. Garrett w/e was "bad" after having felt some relief with prior two ECT. Affect constricted, pleading, tense disposition, impov speech, PMR. WIll cont RUL acute ECT and cont Valium taper, but a bit slower going forward. 06/24 Pt feeling dysphoric again, pre treatment, today. Likely a function of mild benzo w/d (being down to 2 mg bid on valium, and holding two doses prior to each tx), and reversion of depressive symptoms 48 hours after a treatment, in this his early phase of acute ECT. He is more constricted and pleading in his attitude and feels not as hopeful re surmounting the stressors on his plate. Plan is to dishcharge this weekend to 20/05 care in [facility]
--- NOTE | 2018-06-25 15:24 | ASMTCMCOM ---
CM Note CM Note Notes: Client presents (objectively) better than previous days with a brighter affect, etc. Client states, that he and his will work together to set up his out-patient living situation and expenses, etc. Client would like to discharge this Saturday from the in-patient unit. Date Signed: 06/25/2018 03:23 PM Electronically Signed By:Daljit Jones
[2018-06-25] MEDS: lamoTRIgine 100 MG TAB PO SCH (19:53)
[2018-06-25] MEDS: DIAZEPAM 2 MG TAB PO SCH (19:53)
[2018-06-25] MEDS: QUEtiapine FUMARATE 200 MG TAB PO SCH (19:53)
[2018-06-26] MEDS: DIAZEPAM 2 MG TAB PO SCH (09:16)
--- NOTE | 2018-06-26 11:33 | SOAPPROG ---
SOAP Progress Note Assessment/Plan: Assessment: Bipolar I depression, ETOH/Benzo/Opiate use disorder, recent Benzo w/d Plan: Reviewed ECT with patient at length. He provided his I/C to start RUL ECT tomorrow. Found out that in-laws are not comfortable providing 24/7 supervision. I recommended they come to see a treatment and speak with MD and Elizabeth Johnston or Kasandra Lowe about the specifics of providing that care. Will reach out to . Will allow Ambien 10 qhs to replace Diazepam for the nights prior to ECT. Dr Becker was given extensive verbal, written, and internet based references (ie , [facility] with video of procedure, and [facility] sites) in the service of providing psycho-education about ECT, and its risks, benefits and alternatives. We discussed APA based guidelines for being a candidate for this procedure, including factors such as acuity, treatment resistance/intolerance, pt preference, the risk of inaction or inadequate action (ie, morbidity or mortality from SI of mood disorder if under treated), and the role of possible diagnostic uncertainty. Alternative treatments, such as further med trial(s), TMS, or psychotherapies were discussed. Star D data was used to inform this medical decision making process, comparing relative remission rates with further med trials in a treatment resistant cohort with remission and response rates using ECT in TRD. The risks were highlighted including mortality from anesthesia, MT, arrhythmia, or CVA.Common, nuisance side effects were discussed including headache, nausea/ emesis, jaw pain, muscle aches. Cognitive side effects were discussed extensively, both verbally and with written handout. This included the potential for: anterograde and retrograde amnesia; transient delirium; hypofrontality with abulia and slowed processing speed ;a sense of derealization/depersonalization. State dependent memory issues were discussed as a form of remote memory effect that may be more a function of ones very improvement than a side effect of ECT itself. Again, all these risks and side effects were balanced against the risk using alternative or status quo treatment. We discussed RUL vs Bilateral ECT Typical course is 6-18 ECTs, 2-3 times per week. Often RUL takes longer to complete than Bilateral, and up to 50% of our patients who start with RUL switch at some point to bilateral due to inadequate or slow response. Maintenance ECT was discussed as beneficial to reduce relapse risk, when used with meds, rather than either modality alone or , of course, neither modality, with its 85% relapse risk in the months following acute ECT in those who respond initially Discussed alternative of starting inpatient vs outpatient, and the need for 24/ 7 supervision for any part of acute ECT done outpatient. This supervision should persist for at least two weeks beyond the end of the acute phase.. Pt and family is instructed to speak with Elizabeth Johnston RN (phone [phone]) re logistic of starting and has information about the supportive, therapeutic services (for pt or family) of Kasandra Mynor, for whom a number is provided. 06/17/18 15:27 06/19/18 13:08 Pt interviewed in hospital room, him sitting up in bed. A bit unkempt and tense appearing with rumination and some SI endorsed. Tearful around discussion re sons alienation from him. He is willing to expedite his valium taper and thus I will reduce to 3 mg bid. LMT level was a bit low, but pt did miss one dose the day before it was drawn. Nonetheless, I might recommend increasing his LMT dose upon completion of acute ECT 06/19/18 13:13 06/24/18 13:57 Spent 45 min providing psychoeducation and supportive therapy for pt. Discussed response thus far to ECT which involves transient improvement on days of Treatment and some, albeit not total, backsliding afterwards. Tolerating decrease in Valium, which itself was proving to be intolerable pre ECT when done even more modestly (ie, he could not tolerate a change from 12 mg to 10 without subjective discomfort; now is down to 3mg bid, and is having a substantial percentage of those doses held around ECT treatments). He has NO signs objectively of benzo w/d. He is wishing to push forward and decrease it to 2 mg bid. Feels some waxing and waning sense of hopefulness about surmounting his situational stressors, most notably the disturbed relationship with his sons. Spoke at length with yesterday pm. Tentative plan is to shoot for discharge by Saturday, wherein pt will stay in rented apt with 24/7 hired supervision. This person will monitor and dispense meds, allow no driving and transport pt to appts, kamala ECT. In Laws will also play a role. I encouraged there by a family meeting a week from , in my outpt office, with in Laws , by phone. Pt will be s/p ECT #7 at that point. 06/26/18 11:30 Pt appears in bed, not asleep and admits to having been ruminating on negative thoughts prior to MD coming in. He is not experiencing overt benzo W/D symptoms but I shared that even subtle w/d could feel like dyphoria not too dissimilar to his depression/anxiety. He received further support, reassurance and psychoed re his prognosis and treatment plan review (ie, finish acute ECT, taper fully off benzo, use VPA if need be to ease him off last milligrams of diazepam, transition to oupt acute ECT by saturday.) Objective: Vital Signs Temp Pulse Resp BP Pulse Ox 36.8 C 70 14 104/57 L 94 06/25/18 14:30 06/25/18 14:30 06/25/18 14:30 06/25/18 14:30 06/25/18 14:30 Laboratory Results 06/16/18 09:25 ICD10 Worksheet Patient Problems: Problems Problem Status Onset Bipolar 1 disorder, depressed Acute - ICD10 Problem Qualifiers (1) Bipolar 1 disorder, depressed
--- NOTE | 2018-06-26 12:28 | ASMTBHDC ---
Notes Note: Notes: CC confirmed client's next ECT appts. Follow up with: Dr. Isiah Watts (ECT) [facility] [address] [place] [id number] Next ECT Appt: SaturdayJuly 02 (07/02/18) at 8:30am Date Signed: 06/26/2018 12:27 PM Electronically Signed By:Daljit Jones
[2018-06-26] MEDS: QUEtiapine FUMARATE 200 MG TAB PO SCH (19:15)
[2018-06-27] MEDS ORDERED: MIDAZOLAM 2 MG/2 ML VIAL ONE (04:41)
[2018-06-27] MEDS ORDERED: fentaNYL 100 MCG/2 ML INJ ONE (04:42)
[2018-06-27] MEDS ORDERED: ETOMIDATE 20 MG/10 ML VIAL ONE (04:42)
[2018-06-27] MEDS ORDERED: KETOROLAC 30 MG/1 ML SDV ONE (04:42)
[2018-06-27] MEDS ORDERED: GLYCOPYRROLATE 0.2 MG/1 ML VIAL ONE (04:42)
[2018-06-27] MEDS ORDERED: ONDANSETRON 4 MG/2 ML VIAL ONE (04:42)
[2018-06-27] MEDS ORDERED: SUCCINYLCHOLINE CHLORIDE 200 MG/10 ML VIAL ONE (04:43)
[2018-06-27] MEDS ORDERED: ROCURONIUM 50 MG/5 ML VIAL ONE (04:43)
[2018-06-27] MEDS ORDERED: LORazepam 2 MG/ML INJ ONE (04:43)
[2018-06-27] MEDS ORDERED: CITRIC ACID/SODIUM CITRATE 30 ML UDCUP ONE (08:46)
[2018-06-27] MEDS ORDERED: ONDANSETRON DISINTEGRATING 4 MG TAB ONE (08:46)
[2018-06-27] MEDS ORDERED: ONDANSETRON DISINTEGRATING 4 MG TAB PO PRN (08:52)
[2018-06-27] MEDS ORDERED: NS 1,000 ML IV PRN (08:52)
[2018-06-27] MEDS ORDERED: CITRIC ACID/SODIUM CITRATE 30 ML UDCUP PO PRN (08:52)
--- NOTE | 2018-06-27 09:40 | PDANEPAE ---
ECT Pre Anesthetic Evaluation Allergies/Adverse Reactions: aripiprazole [From Abilify] Allergy (Verified 06/16/18 10:22) Penicillins Allergy (Verified 06/16/18 10:22) Rash trazodone Allergy (Verified 06/16/18 10:23) Patient ID confirmed: Yes H&P reviewed: Yes Pre-anesthetic history reviewed: Yes Heart: regular rate and rhythym, no murmur, rub, or gallop Lungs: no respiratory distress, clear to auscultation Mallampati Score: Class 3 ASA Status: I Home Medications: Medication Instructions Recorded Albuterol [Proventil Inhaler HFA 1 - 2 puffs IH DAILY PRN 06/16/18 (*)] Diazepam [Valium 2 MG (*)] 2 mg PO BID #60 tab 06/27/18 OLANZapine [OLANZapine (*)] 5 - 10 mg PO Q6H PRN #30 tab 06/27/18 QUEtiapine FUMARATE [Seroquel 200 400 mg PO HS #60 tab 06/27/18 mg (*)] Zolpidem Tartrate [Ambien 5MG (*)] 10 mg PO HS PRN #10 tab 06/27/18 lamoTRIgine [LamICTAL 100 MG (*)] 100 mg PO HS #30 tab 06/27/18 Medication review: completed Patient interviewed: Yes Patient examined: Yes Anesthetic plan discussed with patient: Yes Anesthetic risks discussed with patient: Yes ECT Pre-Anesthetic History - Height & Weight Height: 177.8 cm Weight: 90.718 kg BMI: 28.70 - Medications In the Past 6 Months the Patient Has Taken: Aspirin, Tranquilizers - Tobacco/Alcohol/Drug Use Smoking Status: Never smoked Hx Drug/Substance Abuse: Yes Alcohol Use: Yes Tobacco/Alcohol/Drug Use History Comment: h/o opioid/benzo and EtOH dependency, trying to be sober - Prior Surgeries/Hospitalizations Prior Surgeries: bilat inguinal hernia, ACL repair Prior Medical Hospitalizations: pulmonary embolism - Pulmonary History ECT Hx Asthma: Yes Inhaler Use: Inhaler As Needed Hx Abnormal Chest X-Ray: No Hx Oxygen in Use at Home: No Pulmonary History Comment: no inhaler use x6 months, usually RAD activated by URI - Cardiovascular History Hx Hypertension: No Currently Uses Hypertension Medication: No Hx Arrhythmias: No Hx Palpitations: No Hx Chest Pain: No Hx Coronary Artery / Peripheral Vascular Disease: No Hx Blood Clot: Yes Cardiovascular History Comment: 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 - Neurologic History Hx Cerebrovascular Accident: No Hx CT Scan Or MRI Of The Brain: No Hx Epilepsy, Convulsions, Seizures, Or Blackouts: No Hx Frequent Or Severe Headaches: No Hx Numbness: No Hx Neurologic Disorder: No - Dental History Current Dental Issues: None - Endocrine History Hx Diabetes: No Current Daily Insulin Injections: No Hx Thyroid Problems: No - Renal/Urologic History Hx Renal Disorders: No Hx Urinary Tract Problems: No - Liver History Hx Hepatic Disorders: No - Cancer History Hx Cancer: No - Hematology History Hx Unexplained Bleeding Of Any Type: No Hx Ease Of Bruising: No Hx Anemia: No - Gastrointestinal History Hx Gastroesophogeal Reflux Disease: No Hx Ulcers: No Hx Hiatal Hernia: No Hx Difficulty Swallowing: No - Musculoskeletal Hisory Hx Chronic Pain: No Hx Arthritis: No - Opthalmic History Hx Glaucoma: No Visual Assistive Devices: Contacts Hx Opthalmic Disorders: No - Other Health History Physical Disabililty: No Recent Cough, Cold, or Fever: No Significant Weight Loss In The Last 4 Months: No Possible the Patient Might be : No
--- NOTE | 2018-06-27 11:04 | ASMTBHDC ---
Notes Note: Notes: Follow up with: Dr. Isiah Watts (ECT) [facility] [address] [place] [address], [place] [address] Appointment on July 02 (07/02/18) at 09:00. Date Signed: 06/27/2018 11:02 AM Electronically Signed By:Sloane Son
--- NOTE | 2018-06-27 13:04 | ASMTBHDC ---
Notes Note: Notes: CC checked in with the patient who denied feeling anxiety, depression, SI, HI, and A/VH. He requested prescriptions for valium and depakote upon discharge. The patient stated that his plans to leave [place] tomorrow (06/28) at 08:00. He hopes to discharge around noon. He is "feeling much better." Date Signed: 06/27/2018 12:38 PM Electronically Signed By:Sloane Son
--- NOTE | 2018-06-27 18:18 | GDS ---
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 He lives with his and 2 teenage children in [place]. He has prior inpatient hospitalizations for detox and rehab. He is presently followed by [facility] and specifically Frances Dawson MD , and has a pillowcase folder there as well. He has been away from work since November 2017 after his discovered his substance use and prompted him to self report to [facility], which he had done voluntarily. His outpatient psychiatrist who referred him for ECT is Juhi Savage MD, with whom he has worked since June 2007. The patient was admitted on 06/16/2018 and will be discharged on 06/28/2018. REASON FOR ADMISSION: This patient with longstanding history of mood disorder and substance use, presents now with severe atypical depressive symptoms as described in the history of present illness with ultimately hopelessness and suicidal ideation without present intent or plan. He has significant situational stressors, mostly as a function of his illness and substance use and the fall out from these things in terms of inability to work and his alienation from his family, especially his teenage sons. His degree of dread and anxiety was stated best by himself who said "I feel like a soldier on the landing craft approaching the beach on ." He has been attempting to wean off diazepam which is dosed at 6 mg twice daily, but had been unable to drop that dose by more than 2 or 4 mg without having pronounced adverse affects. His becoming completely clean and sober including benzodiazepine is a prerequisite through [facility] to their treatment plan and expectations. The patient himself is very motivated to do so, but had felt incapable of doing it in the throes of his present depression. ROUTINE PHYSICAL EXAM: Completed by Wayne Shepherd and revealed: 1. Bradycardia. I do not anticipate this is going to be an issue. It has occasionally been an issue in the setting of general anesthesia and this can be watched during ECT which is planned for him. 2. History of deep venous thrombosis and pulmonary embolism. As the patient is ambulatory, he does not need DVT prophylaxis as previous was a provoked DVT in the setting of an orthopedic injury. 3. Benzodiazepine taper. This may interfere with ECT. They will leave this to the discretion of Dr. Watts, but I recommend continuing them for now as he has had trouble getting past the 12 mg of Valium. 4. Depression. Management per ECT. Disposition to Behavioral Health. LAB WORK: The patient's CBC was within normal limits. His complete blood count was normal. His hemoglobin A1c is 5.6. Highly sensitive C-reactive protein is 1.6. Vitamin B12 is 358. 25-hydroxyvitamin D is 39. TSH was 4.37. Urinalysis negative. Urine drug screen was negative except for benzodiazepine as expected given the diazepam. His lithium level on 06/17 reflective of his admission dose of 1500 mg was 1.2. Likewise, his lamotrigine level of 3.8 was reflective of his admission dose of 200 mg. HOSPITAL COURSE: The patient gave his informed consent to start right unilateral acute ECT. He underwent 5 acute treatments during this hospital stay. In order to initiate ECT, we discontinued lithium given its potential to contribute to neurotoxicity and cognitive impact. Lamictal was reduced in dose and held each night prior to ECT given its antiepileptic effect. Quetiapine 400 mg was continued at night, and he was given Zyprexa p.r.n. He was allowed zolpidem 10 mg p.o. at bedtime on the evenings prior to ECT as his diazepam was also to be held those evenings and the mornings of ECT. On a very promising note, the patient has been able to taper his 12 mg of diazepam down to effectively less than 4 mg at this point. He is prescribed 2 mg p.o. twice daily, but we are holding 40% of his doses given the acute ECT. He is showing no objective signs of benzodiazepine withdrawal. However, there has been some expected increase in dysphoria, rumination and anxiety in the context of reducing the diazepam and especially the mornings of ECT when it has been held for about 24 hours or greater. His with whom the service writer has spoken to a number of times during this hospital stay, indicate however that this very morning of ECT, he sounded quite well to her despite being on the lower dose and having not had that medication for over 24 hours. In my opinion , his ability to weather the discomforts of this reduction in his benzodiazepine is a testimony to some of the initial benefits he is already receiving in his depression and anxiety from the ECT treatment. He is thus made more resilient to tolerating some of the dysphoria he might otherwise have been having in reducing the benzodiazepine as an outpatient prior to ECT. The plan that he understands as well is that as we get closer to his being completely off the diazepam, the service writer will introduce Ivyte for twofold reason: One, it has some cross toleration with benzodiazepines and should mitigate what might be the hardest phase of the benzodiazepine withdrawal, namely reducing the last small amounts of Valium to none at all; and two, given its mood stabilizing benefits, it may bolster his medication regimen for his bipolar illness. I have been reluctant to initiate that yet as it has not been necessary and the antiepileptic effects of diazepam could mitigate the therapeutic benefits of ECT. Although he does periodically fall back into a ruminative state where he contemplates the significant stressors and losses in his life at present, he is overall future oriented and hopeful that he will get his vocation and family life back on track ultimately and be able to maintain sobriety from all substances including opiates, benzos and alcohol. DISCHARGE MEDICATIONS: Diazepam 2 mg p.o. twice daily (hold any dose the night before and morning of ECT), lamotrigine 100 mg p.o. at bedtime (hold the bedtime dose any evening prior to ECT), quetiapine 400 mg p.o. at bedtime, zolpidem 5-10 mg p.o. at bedtime only on evenings prior to ECT (only #10 tablets given), olanzapine 5 mg p.o. q.6 hours p.r.n. anxiety. DISPOSITION: The patient is to discharge to his who will aide him in getting into a local apartment and hiring 20/05 supervision. The supervision must include his being prohibited from driving, bringing the patient to all appointments including ECT, holding onto and dispensing all medication, over-the -counter and prescribed, and removing any potential means of self-harm from the patient's access. The patient should return to the hospital if there is any increase in suicidal thinking or any confusion or agitation. In terms of medication, the patient is to stay off lithium for the duration of the acute ECT and he will be instructed to go back on that med, but at a lower dose once we begin maintenance ECT. He will continue to take the lower dose of Lamictal 100 mg during acute ECT, but skip the doses the nights prior to any treatment. After acute ECT is completed, I recommend he go up to a higher dose of Lamictal than he had been on given the blood level having been somewhat low. He is to stay on diazepam 2 mg twice daily until otherwise specified, but to skip doses the nights prior to and the a.m. of any ECT. He may take zolpidem 5 to 10 mg on those ECT evenings. I strongly recommend family therapy after completion of acute ECT and after completion of his CP required inpatient rehab. He should continue on in the local AA/NA group and avoid any habit-forming medication or substance. Depakote may be used to ease his transition off the last milligrams of diazepam as it has some cross tolerance with benzodiazepine and is a good mood stabilizer as well. Cognitive behavioral therapy will be important for this patient as well. He is to follow up with Dr. Savage for psychopharmacology once he returns to his home. DISCHARGE DIAGNOSES: 1. [place] I: Bipolar 2 disorder, depressed. History of alcohol, benzodiazepine and opiate use disorder, rule out substance induced mood disorder. 2. [place] II: Deferred. 3. [place] III: Asthma. 4. [place] IV: Moderate to severe. 5. [place] V: 48. /[id number]/MODL and [id number]/MODL [facility]
[2018-06-27] MEDS: QUEtiapine FUMARATE 200 MG TAB PO SCH (20:41)
[2018-06-27] MEDS: lamoTRIgine 100 MG TAB PO SCH (20:41)
[2018-06-27] MEDS: DIAZEPAM 2 MG TAB PO SCH (20:41)
[2018-06-28 07:08] VITALS: BP 114/63
[2018-06-28] MEDS: DIAZEPAM 2 MG TAB PO SCH (08:47)
--- NOTE | 2018-06-28 09:14 | ASMTBHDC ---
Notes Note: Notes: CC meet with pt. as he was just waking up. Pt. reports "doing okay". Pt stated he and his have rented a place in [place] and will continue receiving ECT treatment outpatient Pt. stated he believes he is on 6/2 treatments. Pt. stated his will be here to pick him up around 10am. PT. reports ECT makes him "feel better mentally". Pt. denied SI, HI, AVH and paranoia. Date Signed: 06/28/2018 09:14 AM Electronically Signed By:Carol Major
--- NOTE | 2018-07-04 12:20 | ASDISCHSUM ---
Discharge Information Plan Status:Home with No Needs Medically Cleared to Leave:06/27/2018 Discharge Date:06/28/2018 11:30 AM CM D/C Disposition:Home, Routine, Self-Care ADT D/C Disposition:Home, Routine, Self-Care Projected Discharge Date:06/28/2018 10:00 AM Transportation at D/C:Family Discharge Delay Reason: Follow-Up Date:07/02/2018 Discharge Slot: Final Diagnosis: Placement Information Referral Type:*Long Term/SNF Referral ID:[id number] Provider Name: Address 1: Phone Number: Address 2: Fax Number: City: Selection Factors: State: Patient Contact Information Contact Name:VIMAL Relationship: Address:[address] Work Phone: [place]:[facility] Phone: [facility]/Zip Code:[place] [address] Email: Financial Information Financial Class:HMO and PPO Plans Primary Plan Desc:[facility] [employer] Primary Plan Number:[id number] Secondary Plan Desc: Secondary Plan Number: Assessment Information Behavioral Health Master Treatment Plan Master Treatment Plan Master Treatment Plan Answers: Depressed Mood with for: Suicidal Ideation Date: 06/16/2018 Diagnosis on Admission: MDD Expected length of stay: 5-7 days Reason for admission: Notes: Client is is a 52 yoa male, with extensive history of participation in and out of "Drug Rehab facilities." Client was treated for a recent Hydrocodone addiction and suicidal statements as well as a drafted "suicide note (February 2018)." Clvane has recently returned back to [place], [place] and was living in his own apartment for about 6 weeks with his and children for the past 3 weeks. Client current out-patient treatment team consist of Magalys Isidro (Food Safety Director at [facility], Martial therapist over the past month) & Dr. Juhi Savage MD out-patient Psychiatrist. Patient's stated presenting problems: Notes: "I'm derpressed...going to try ECT [place] with Dr. Watts." Patient's goals for treatment: Notes: "to feel better...." Patient's strengths: Notes: "I'm smart." Identify supports outside of hospital: Notes: Yes Discharge criteria: Notes: Suicidal Ideation will resolve and patient will have a plan to safely manage recurrent suicidal ideation. Initial disposition plan/considerations: Notes: NEED to find new plan because staying with my 's parents are no longer an option." Master Treatment Plan Required Signatures Psychiatrist signature: Answers: Psychiatrist: RN on-shift signature: Answers: RN: Patient signature: Answers: Patient: Date Signed: 06/17/2018 08:48 AM Electronically Signed By:Daljit Jones DARLENE CM Progress Note CM Note CM Note Notes: sent referral for half-way placement (short term) via [employer] to [facility] in [place], [place]. There phone number is , to follow up with. Date Signed: 06/19/2018 04:56 PM Electronically Signed By:Daljit Jones DARLENE CM Progress Note CM Note CM Note Notes: Pt. reports doing "okay". Pt. reports sleeping "well". Pt. reports needing more to eat, and pt. requested additional food. Pt. reports ECT is "going well". Pt. reports "mood feel better but it doesn't last". Pt. stated he is on his 4th ECT out of 12. PT. reports no issues with his current medications. Pt. stated he is not attending groups because he is "not interested". Pt. denied SI, HI, AVH and paranoia. Pt. stated he will make his own follow-up appointments. Staff report pt. sleeping 9 hours and being medication complaint. Date Signed: 06/24/2018 02:07 PM Electronically Signed By:Carol Major [facility] CM Progress Note CM Note CM Note Notes: Client presents (objectively) better than previous days with a brighter affect, etc. Client states, that he and his will work together to set up his out-patient living situation and expenses, etc. Client would like to discharge this Saturday from the in-patient unit. Date Signed: 06/25/2018 03:23 PM Electronically Signed By:Daljit Jones [facility] Discharge Planning Note Notes Note: Notes: CC confirmed client's next ECT appts. Follow up with: Dr. Isiah Watts (ECT) [facility]In[facility] Health [address] [place] [address], [place] [address] Next ECT Appt: SaturdayJuly 02 (07/02/18) at 8:30am Date Signed: 06/26/2018 12:27 PM Electronically Signed By:Daljit Jones Behavioral Health Discharge Planning Note Notes Note: Notes: Follow up with: Dr. Isiah Watts ([facility]) [facility] [address] [place], [place] [id number] Appointment on July 02 (07/02/18) at 09:00. Date Signed: 06/27/2018 11:02 AM Electronically Signed By:Sloane Son [facility] Discharge Planning Note Notes Note: Notes: checked in with the patient who denied feeling anxiety, depression, SI, HI, and A/VH. He requested prescriptions for valium and depakote upon discharge. The patient stated that his plans to leave [facility] tomorrow (06/28) at 08:00. He hopes to discharge around noon. He is "feeling much better." Date Signed: 06/27/2018 12:38 PM Electronically Signed By:Sloane Son [facility] Discharge Planning Note Notes Note: Notes: CC meet with pt. as he was just waking up. Pt. reports "doing okay". Pt stated he and his have rented a place in [place] and will continue receiving ECT treatment outpatient Pt. stated he believes he is on 6/2 treatments. Pt. stated his will be here to pick him up around 10am. PT. reports ECT makes him "feel better mentally". Pt. denied SI, HI, AVH and paranoia. Date Signed: 06/28/2018 09:14 AM Electronically Signed By:Carol Major Intervention Information
== END 2018-06-28 11:30 | disposition home or self-care (01) | DRG 885 ==
LOC: BBEH 12:30
PROVIDERS: ADMIT Psychiatry & Neurology Psychiatry; ATTEND Psychiatry & Neurology Psychiatry
PROC: GZB0ZZZ Electroconvulsive Therapy, Unilateral-Single Seizure (ICD-10-PCS; principal; 2018-06-18)
DX: F31.30 Bipolar disorder, current episode depressed, mild or moderate severity, unspecified (principal); J45.909 Unspecified asthma, uncomplicated; R00.1 Bradycardia, unspecified; Z86.711 Personal history of pulmonary embolism; Z86.718 Personal history of other venous thrombosis and embolism
CPT/HCPCS: 80175-90; 81291-90; 82607-90; 86141-90; J0330; J1885; J2060; J2250; J2405; J3010